=== PATIENT | male | born 1945 | race Caucasian/White ===

== ENCOUNTER 2019-11-13 05:56 | Emergency (ER) | payer OTHER ==
--- NOTE | 2019-11-13 06:12 | EDM.PDOC ---
"<Josette Parmar - Last Filed: 11/13/19 06:53> ED HPI GENERAL MEDICAL PROBLEM - General Chief Complaint: Abdominal Pain Stated Complaint: STOMACH PROBLEMS Time Seen by Provider: 11/13/19 06:11 Source of Information: Reports: Patient, RN History Limitations: Reports: No Limitations - History of Present Illness INITIAL COMMENTS - FREE TEXT/NARRATIVE: ED with c/o severe abdominal pain, radiating to between shoulder blades. started late last night, woke twice took pill helped some, unsure what pill was, stated had been on it 4-5 years ago but pain was different then. Monitor HR in 40's. states usually mid 50's. Rates pain 10/10. Abdomen Pain Score (Numeric/FACES): 10 - Related Data Allergies Allergy/AdvReac Type Severity Reaction Status Date / Time No Known Allergies Allergy Verified 11/13/19 06:29 ED EXAM, GI/ABD - Physical Exam Exam: See Below Exam Limited By: No Limitations General Appearance: Alert, Moderate Distress, Obese Ears: Normal External Exam Nose: Normal Inspection Throat/Mouth: Normal Inspection, Normal Lips, Normal Oropharynx, Normal Voice, No Airway Compromise Head: Atraumatic, Normocephalic Neck: Normal Inspection Respiratory/Chest: No Respiratory Distress, Lungs Clear, Normal Breath Sounds Cardiovascular: Normal Peripheral Pulses, Regular Rate, Rhythm, Bradycardia GI/Abdominal Exam: Abnormal Bowel Sounds (faint) Rectal (Males) Exam: Normal Rectal Tone Back Exam: Full Range of Motion Extremities: Normal Inspection Neurological: Alert, Oriented, Normal Cognition Psychiatric: Normal Affect Skin Exam: Dry, Pallor Departure - Departure Disposition: Home, Self-Care 01 Clinical Impression: Biliary colic Cholelithiasis without obstruction Qualifiers: Cholelithiasis location: gallbladder Cholecystitis presence: without cholecystitis Qualified Code(s): K80.20 - Calculus of gallbladder without cholecystitis without obstruction - Discharge Information Instructions: Biliary Colic, Adult, Cholelithiasis Forms: ED Department Discharge Additional Instructions: Very low fat diet and no alcohol. [facility] this [facility] for [facility]. <Romulo Cartagena - Last Filed: 11/13/19 07:37> ED HPI GENERAL MEDICAL PROBLEM - History of Present Illness INITIAL COMMENTS - FREE TEXT/NARRATIVE: I assumed care of the pt from Josette VOGEL at 0700HR shift change with pt comfortable and symptom free with labs results complete and CT Chest/Abd/Pelvis report pending. ED ROS GENERAL - Review of Systems Review Of Systems: Comprehensive ROS is negative, except as noted in HPI. ED EXAM, GI/ABD - Physical Exam Exam: See Below Exam Limited By: No Limitations General Appearance: Alert, WD/WN, No Apparent Distress, Obese Throat/Mouth: Normal Lips, Normal Voice, No Airway Compromise Head: Atraumatic, Normocephalic Neck: Normal Inspection Respiratory/Chest: No Respiratory Distress, Normal Breath Sounds Cardiovascular: Regular Rate, Rhythm (HR 68 at time of exam.), No Edema GI/Abdominal Exam: Normal Bowel Sounds, Soft, Non-Tender, No Distention. No: Guarding, Rigid, Rebound Neurological: Alert, Oriented, No Motor/Sensory Deficits Psychiatric: Normal Mood Skin Exam: Warm, Dry, Intact, Normal Color Course - Vital Signs Last Recorded V/S: Last Vital Signs Temp 96.6 F L 11/13/19 06:12 Pulse 49 L 11/13/19 06:12 Resp 19 11/13/19 06:12 BP 128/50 L 11/13/19 06:12 Pulse Ox 100 11/13/19 06:12 - Orders/Labs/Meds Orders: Active Orders 24 hr Category Date Time Status EKG Documentation Completion [RC] URGENT Care 11/13/19 06:32 Active CULTURE BLOOD [BC] Stat Lab 11/13/19 06:34 Ordered CULTURE BLOOD [BC] Stat Lab 11/13/19 06:34 Ordered LACTIC ACID [CHEM] Stat Lab 11/13/19 06:32 Ordered TYPE AND SCREEN [BBK] Stat Lab 11/13/19 06:25 Received UA W/MICROSCOPIC [URIN] Stat Lab 11/13/19 06:32 Ordered Sodium Chloride 0.9% [Normal Saline] 1,000 ml Med 11/13/19 06:31 Active IV .BOLUS Blood Culture x2 Reflex Set [OM.PC] Stat Oth 11/13/19 06:33 Ordered Medication Orders Sodium Chloride (Normal Saline) 1,000 mls @ 999 mls/hr IV .BOLUS ONE Stop: 11/13/19 07:31 Last Admin: 11/13/19 06:34 Dose: 999 mls/hr Documented by: DANIELLE Labs: Laboratory Tests 11/13/19 11/13/19 11/13/19 Range/Units 06:25 06:25 06:25 WBC 9.6 (5.0-10.0) 10^3/uL RBC 4.68 (4.6-6.2) 10^6/uL Hgb 14.8 (14.0-18.0) g/dL Hct 42.2 (40.0-54.0) % MCV 90.2 (80-100) fL MCH 31.6 (27.0-34.0) pg MCHC 35.1 H (33.0-35.0) g/dL Plt Count 171 (150-450) 10^3/uL Neut % (Auto) 83.2 H (42.2-75.2) % Lymph % (Auto) 10.0 L (20.5-50.1) % Barry % (Auto) 6.1 (2-8) % Eos % (Auto) 0.5 L (1.0-3.0) % Baso % (Auto) 0.2 (0.0-1.0) % PT 10.2 (9.0-12.0) SEC INR 1.1 (0.9-1.2) D-Dimer, Quantitative 185 (0-400) ng/mL Sodium 142 (136-145) mmol/L Potassium 3.5 (3.5-5.1) mmol/L Chloride 106 (98-107) mmol/L Carbon Dioxide 29 (21-32) mmol/L Anion Gap 10.5 (7-13) mEq/L BUN 17 (7-18) mg/dL Creatinine 1.30 (0.70-1.30) mg/dL Est Cr Clr Drug Dosing 56.34 mL/min Estimated GFR (MDRD) 54 BUN/Creatinine Ratio 13.1 (No establ ref range) Glucose 214 H (74-99) mg/dL Calcium 8.8 (8.5-10.1) mg/dL Magnesium 2.0 (1.8-2.4) mg/dL Total Bilirubin 0.5 (0.2-1.0) mg/dL AST 21 (15-37) U/L ALT 38 (16-63) U/L Alkaline Phosphatase 86 (46-116) U/L Troponin I < 0.017 (0.000-0.056) ng/mL B-Natriuretic Peptide 68 (0-100) pg/ml Total Protein 6.2 L (6.4-8.2) g/dL Albumin 3.4 (3.4-5.0) g/dL Globulin 2.8 Albumin/Globulin Ratio 1.2 Amylase 42 (25-115) U/L Lipase 146 (73-393) U/L Meds: Medications Generic Name Dose Route Start Last Admin Trade Name Freq PRN Reason Stop Dose Admin Sodium Chloride 1,000 mls @ 999 mls/hr 11/13/19 06:31 11/13/19 06:34 Normal Saline IV 11/13/19 07:31 999 mls/hr .BOLUS ONE Administration Discontinued Medications Generic Name Dose Route Start Last Admin Trade Name Freq PRN Reason Stop Dose Admin Atropine Sulfate 0.5 mg 11/13/19 06:36 11/13/19 06:38 Atropine 0.1 Mg/Ml IVPUSH 11/13/19 06:37 0.5 mg ONETIME ONE Administration Atropine Sulfate Confirm 11/13/19 06:37 11/13/19 06:54 Atropine 0.1 Mg/Ml Administered 11/13/19 06:38 Not Given Dose 1 mg .ROUTE .STK-MED ONE Fentanyl 25 mcg 11/13/19 06:31 11/13/19 06:33 Sublimaze IVPUSH 11/13/19 06:32 25 mcg ONETIME ONE Administration Fentanyl Confirm 11/13/19 06:31 11/13/19 06:34 Sublimaze Administered 11/13/19 06:32 Not Given Dose 100 mcg .ROUTE .STK-MED ONE Iopamidol 100 ml 11/13/19 06:35 11/13/19 06:44 Isovue-300 (61%) IVPUSH 11/13/19 06:36 100 ml ONETIME ONE Administration - Radiology Interpretation Free Text/Narrative:: [facility] [place] [facility] Final Radiology Report Call: [phone] assistance Online chat: [email or web address] Name: KIM JOHNSON Age: 74Years M Date: 11/13/2019 SSN: -- : 1945 Study: CR CHEST 1V FRONTAL Requesting Physician: JOSETTE PARMAR Images: 1 Addl Studies: Provided Clinical History: dizzy Contrast: Contrast Medium: Contrast Amount: Contrast Method: CONFIDENTIALITY STATEMENT This report is intended only for use by the referring physician, and only in accordance with law. If you received this in error, call [phone]. Page 1 of 1 PROCEDURE INFORMATION: Exam: XR Chest, 1 View Exam date and time: 11/13/2019 6:38 AM Age: 74 years old Clinical indication: Other: Dizzy TECHNIQUE: Imaging protocol: XR of the chest Views: Frontal portable view of the chest. COMPARISON: No relevant prior studies available. FINDINGS: Tubes, catheters and devices: EKG leads are present overlying the chest. Lungs: The lungs are clear bilaterally. The pulmonary vasculature is normal. Pleural space: No pleural effusion. No pneumothorax. Heart/Mediastinum: The heart is normal in size and contour. Bones/joints: No acute chest wall abnormality identified. IMPRESSION: No acute cardiopulmonary abnormality identified. Thank you for allowing us to participate in the care of your patient. Dictated and Authenticated by: Devin De Leon MD 11/13/2019 7:15 AM Central Time ([place] & [place]) [facility] Final Radiology Report Call: [phone] assistance Online chat: [email or web address] Name: KIM JOHNSON Age: 74Years M Date: 11/13/2019 SSN: -- : 1945 Study: CT CHEST ABDOMEN PELVIS W CONT Requesting Physician: JOSETTE PARMAR Images: [id number] Addl Studies: [id number] - CT CHEST W (1) Provided Clinical History: abdominal pain, hilario, pain to back Contrast: With Contrast Medium: Contrast Amount: 100 mL Contrast Method: Intravenous (IV) Page 1 of 3 PROCEDURE INFORMATION: Exam: CT Chest With Contrast Exam date and time: 11/13/2019 7:00 AM Age: 74 years old Clinical indication: Other: R/O dissection; Additional info: Abdominal pain, hilario, pain to back TECHNIQUE: Imaging protocol: Computed tomography of the chest with intravenous contrast. Radiation optimization: All CT scans at this facility use at least one of these dose optimization techniques: automated exposure control; mA and/or kV adjustment per patient size (includes targeted exams where dose is matched to clinical indication); or iterative reconstruction. Contrast material: [id number]; Contrast volume: 100 ml; Contrast route: INTRAVENOUS (IV); COMPARISON: No relevant prior studies available. FINDINGS: Thyroid: The partially imaged bilateral thyroid lobes are unremarkable. Lungs: A 1.6 mm noncalcified pulmonary nodule is noted in the lateral apical segment of the left upper lobe (LOC -1469.6). Mild inferior lingular subsegmental atelectasis. Pleural space: No pneumothorax. No pleural effusion. Heart: Atherosclerotic coronary calcifications are noted involving the LCx and RCA coronary arteries. Aorta: Unremarkable. No aortic aneurysm. Lymph nodes: Small triangular subpleural lymph node of the left lower lobe at the major fissure. Bones/joints: Thoracic spine vertebral body marginal osteophytes are noted at multiple levels. Thoracic spine vertebral body marginal osteophytes are noted at multiple levels. Mild chronic T3 vertebral body compression deformity. Degenerative disk disease is present at mid-thoracic spine disk levels. Soft tissues: Unremarkable. ELIZABETH KIM | Final Radiology Report Page 2 of 3 Other findings: Vasculature: Azygous arch valvular calcifications, normal va riant. IMPRESSION: 1. No thoracic aortic aneurysm or dissection identified. 2. No pulmonary embolism identified. 3. Noncalcified small right upper lobe pulmonary nodule. For patients at low risk (minimal or absent history of smoking and of other known risk factors), no routine follow-up is indicated. For patients at high risk (history of smoking or of other known risk factors), consider optional CT at 12 months. (eduardo Irizarry al., Fleischner Society, 2017). 4. Coronary atherosclerosis. 5. Please see the abdomen/pelvis CT report of the same date for additional find ings. PROCEDURE INFORMATION: Exam: CT Abdomen And Pelvis With Contrast Exam date and time: 11/13/2019 7:00 AM Age: 74 years old Clinical indication: Other: R/O dissection; Additional info: Abdominal pain, hilario, pain to back TECHNIQUE: Imaging protocol: Computed tomography of the abdomen and pelvis with intravenous contrast. Radiation optimization: All CT scans at this facility use at least one of these dose optimization techniques: automated exposure control; mA and/or kV adjustment per patient size (includes targeted exams where dose is matched to clinical indication); or iterative recon struction. Contrast material: [id number]; Contrast volume: 100 ml; Contrast route: INTRAVENOUS (IV); COMPARISON: No relevant prior studies available. FINDINGS: Liver: Normal. No mass. Gallbladder and bile ducts: A few dependent small gallstones are noted posteriorly in the borderline distended gallbladder. The gallbladder transverse lumen measures 4.3 cm. No gallbladder wall thickening. Possible mild pericholecystic edema. Pancreas: Normal. No ductal dilation. Spleen: Normal. No splenomegaly. Adrenals: Normal. No mass. Kidneys and ureters: Accessory left renal artery, single right renal artery. No significant stenosis. Stomach and bowel: Unremarkable. No obstruction. No mucosal thickening. Appendix: The vermiform appendix is normal. Intraperitoneal space: Unremarkable. No free air. No significant fluid collection. Vasculature: Replaced hepatic artery (SMA origin), a normal variant. Mild aortic atherosclerotic calcification without aneurysm. Lymph nodes: No enlarged lymph nodes. Bladder: Partially obscured by streak artifact. No calculi as visualized. KIM JOHNSON | Final Radiology Report CONFIDENTIALITY STATEMENT This report is intended only for use by the referring physician, and only in accordance with law. If you received this in error, call [phone]. Page 3 of 3 Reproductive: Right pelvic penile prosthesis reservoir. Partially obscured by streak artifact inferiorly, unremarkable as visualized. 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 Severe L4-L5 spinal stenosis. Right L5-S1 lateral recess stenosis. Small left femoral head bone island. Mild-moderate left hip primary osteoarthritis. Soft tissues: Unremarkable. IMPRESSION: 1. No abdominal aortic aneurysm or dissection identified. 2. Cholelithiasis, possible mild pericholecystic edema. Gallbladder sonography recommended. 3. Please see the CT chest report of the same date for additional findings. Thank you for allowing us to participate in the care of your patient. Dictated and Authenticated by: Devin De Leon MD 11/13/2019 7:24 AM Central Time ([place] & [place]) Departure - Departure Time of Disposition: 07:35 Condition: Good - Discharge Information *PRESCRIPTION DRUG MONITORING PROGRAM REVIEWED*: Not Applicable *COPY OF PRESCRIPTION DRUG MONITORING REPORT IN PATIENT GLORIA: Not Applicable Sepsis Event Note (ED) - Focused Exam Vital Signs: Vital Signs Temp Pulse Resp BP Pulse Ox 11/13/19 06:12 96.6 F L 49 L 19 128/50 L 100"
[2019-11-13] MEDS ORDERED: fentaNYL 100 MCG/2 ML SDV ONE (06:31)
[2019-11-13] MEDS ORDERED: fentaNYL 100 MCG/2 ML SDV IVPUSH ONE (06:31)
[2019-11-13] MEDS ORDERED: Sodium Chloride 0.9% 1,000 ML IV ONE (06:31)
[2019-11-13] MEDS ORDERED: Iopamidol 612 MG/ML 100 ML Bottle IVPUSH ONE (06:35)
[2019-11-13] MEDS ORDERED: Atropine 0.1 MG/ML 10 ML Syringe IVPUSH ONE (06:36)
[2019-11-13] MEDS ORDERED: Atropine 0.1 MG/ML 10 ML Syringe ONE (06:37)
[2019-11-13 07:00] LABS: ANION GAP 10.5 mEq/L (7-13); CHLORIDE,CL 106 mmol/L (98-107); SODIUM,NA 142 mmol/L (136-145)
--- NOTE | 2019-11-13 07:15 | CR ---
PROCEDURE INFORMATION: Exam: XR Chest, 1 View Exam date and time: 11/13/2019 6:38 AM Age: 74 years old Clinical indication: Other: Dizzy TECHNIQUE: Imaging protocol: XR of the chest Views: Frontal portable view of the chest. COMPARISON: No relevant prior studies available. FINDINGS: Tubes, catheters and devices: EKG leads are present overlying the chest. Lungs: The lungs are clear bilaterally. The pulmonary vasculature is normal. Pleural space: No pleural effusion. No pneumothorax. Heart/Mediastinum: The heart is normal in size and contour. Bones/joints: No acute chest wall abnormality identified. IMPRESSION: No acute cardiopulmonary abnormality identified.
--- NOTE | 2019-11-13 07:25 | CT ---
PROCEDURE INFORMATION: Exam: CT Chest With Contrast Exam date and time: 11/13/2019 7:00 AM Age: 74 years old Clinical indication: Other: R/O dissection; Additional info: Abdominal pain, hilario, pain to back TECHNIQUE: Imaging protocol: Computed tomography of the chest with intravenous contrast. Radiation optimization: All CT scans at this facility use at least one of these dose optimization techniques: automated exposure control; mA and/or kV adjustment per patient size (includes targeted exams where dose is matched to clinical indication); or iterative reconstruction. Contrast material: [id number]; Contrast volume: 100 ml; Contrast route: INTRAVENOUS (IV); COMPARISON: No relevant prior studies available. FINDINGS: Thyroid: The partially imaged bilateral thyroid lobes are unremarkable. Lungs: A 1.6 mm noncalcified pulmonary nodule is noted in the lateral apical segment of the left upper lobe (LOC -1469.6). Mild inferior lingular subsegmental atelectasis. Pleural space: No pneumothorax. No pleural effusion. Heart: Atherosclerotic coronary calcifications are noted involving the LCx and RCA coronary arteries. Aorta: Unremarkable. No aortic aneurysm. Lymph nodes: Small triangular subpleural lymph node of the left lower lobe at the major fissure. Bones/joints: Thoracic spine vertebral body marginal osteophytes are noted at multiple levels. Thoracic spine vertebral body marginal osteophytes are noted at multiple levels. Mild chronic T3 vertebral body compression deformity. Degenerative disk disease is present at mid-thoracic spine disk levels. Soft tissues: Unremarkable. Other findings: Vasculature: Azygous arch valvular calcifications, normal variant. IMPRESSION: 1. No thoracic aortic aneurysm or dissection identified. 2. No pulmonary embolism identified. 3. Noncalcified small right upper lobe pulmonary nodule. For patients at low risk (minimal or absent history of smoking and of other known risk factors), no routine follow-up is indicated. For patients at high risk (history of smoking or of other known risk factors), consider optional CT at 12 months. (Edie et al., Fleischner Society, 2017). 4. Coronary atherosclerosis. 5. Please see the abdomen/pelvis CT report of the same date for additional findings. PROCEDURE INFORMATION: Exam: CT Abdomen And Pelvis With Contrast Exam date and time: 11/13/2019 7:00 AM Age: 74 years old Clinical indication: Other: R/O dissection; Additional info: Abdominal pain, hilairo, pain to back TECHNIQUE: Imaging protocol: Computed tomography of the abdomen and pelvis with intravenous contrast. Radiation optimization: All CT scans at this facility use at least one of these dose optimization techniques: automated exposure control; mA and/or kV adjustment per patient size (includes targeted exams where dose is matched to clinical indication); or iterative reconstruction. Contrast material: [id number]; Contrast volume: 100 ml; Contrast route: INTRAVENOUS (IV); COMPARISON: No relevant prior studies available. FINDINGS: Liver: Normal. No mass. Gallbladder and bile ducts: A few dependent small gallstones are noted posteriorly in the borderline distended gallbladder. The gallbladder transverse lumen measures 4.3 cm. No gallbladder wall thickening. Possible mild pericholecystic edema. Pancreas: Normal. No ductal dilation. Spleen: Normal. No splenomegaly. Adrenals: Normal. No mass. Kidneys and ureters: Accessory left renal artery, single right renal artery. No significant stenosis. Stomach and bowel: Unremarkable. No obstruction. No mucosal thickening. Appendix: The vermiform appendix is normal. Intraperitoneal space: Unremarkable. No free air. No significant fluid collection. Vasculature: Replaced hepatic artery (SMA origin), a normal variant. Mild aortic atherosclerotic calcification without aneurysm. Lymph nodes: No enlarged lymph nodes. Bladder: Partially obscured by streak artifact. No calculi as visualized. Reproductive: Right pelvic penile prosthesis reservoir. Partially obscured by streak artifact inferiorly, unremarkable as visualized. 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 Severe L4-L5 spinal stenosis. Right L5-S1 lateral recess stenosis. Small left femoral head bone island. Mild-moderate left hip primary osteoarthritis. Soft tissues: Unremarkable. IMPRESSION: 1. No abdominal aortic aneurysm or dissection identified. 2. Cholelithiasis, possible mild pericholecystic edema. Gallbladder sonography recommended. 3. Please see the CT chest report of the same date for additional findings.
== END 2019-11-13 07:57 | disposition home or self-care (01) ==
LOC: DL.ED 05:56
DX: K80.70 Calculus of gallbladder and bile duct without cholecystitis without obstruction (principal)
CPT/HCPCS: 36415; 71045; 71260; 74177; 80053; 82150; 82272; 83605; 83690; 83735; 83880; 84484; 85025; 85379; 85610; 86850; 86900; 86901; 87040; 93005; 96361; 96374; 96375; 99284; J0461; J3010; J7030; Q9967

== ENCOUNTER 2020-02-08 09:28 | Emergency (ER) | payer OTHER ==
[2020-02-08] MEDS ORDERED: Sodium Chloride 0.9% 10 ML Syringe FLUSH PRN (09:54)
[2020-02-08] MEDS ORDERED: Ondansetron 4 MG/2 ML SDV IV ONE (09:54)
[2020-02-08] MEDS ORDERED: HYDROmorphone 0.5 MG/0.5 ML Syringe IVPUSH ONE (09:55)
--- NOTE | 2020-02-08 09:58 | EDM.PDOC ---
ED HPI GENERAL MEDICAL PROBLEM - General Chief Complaint: Abdominal Pain Stated Complaint: MAYBE GALLBLADDER ATTACK Time Seen by Provider: 02/08/20 09:40 Source of Information: Reports: [facility] Records History Limitations: Reports: No Limitations - History of Present Illness INITIAL COMMENTS - FREE TEXT/NARRATIVE: Patient comes emergency department today with complaints of abdominal pain. This patient since early this morning has had cramping abdominal pain pretty much throughout his abdomen. He has pain around the abdomen that is cramping in nature and radiates around to his back. He had a very similar symptomology of this in November. He was supposed to have his gallbladder out although he chose to have back surgery instead. He has had some nausea without vomiting. No fever no chills. No diarrhea. No constipation. No bloating distention. No heartburn type symptoms. No chest pain or shortness of breath or difficulty breathing. No cough or congestion. No fever no chills. abdomen Pain Score (Numeric/FACES): 10 - Related Data Allergies Allergy/AdvReac Type Severity Reaction Status Date / Time No Known Allergies Allergy Verified 02/08/20 09:46 Home Meds: Home Meds . [Unable to Verify Home Med List] 02/08/20 [History] Past Medical History Cardiovascular History: Reports: High Cholesterol, Hypertension Respiratory History: Reports: None Gastrointestinal History: Reports: None Genitourinary History: Reports: None Neurological History: Reports: None Psychiatric History: Reports: None Endocrine/Metabolic History: Reports: Diabetes, Type II Hematologic History: Reports: None Immunologic History: Reports: None Oncologic (Cancer) History: Reports: None Dermatologic History: Reports: None - Infectious Disease History Infectious Disease History: Reports: None - Past Surgical History Cardiovascular Surgical History: Reports: None Respiratory Surgical History: Reports: None GI Surgical History: Reports: None Neurological Surgical History: Reports: Other (See Below) Other Neurological Surgeries/Procedures: back surgery - ? laminectomy Musculoskeletal Surgical History: Reports: Other (See Below) Other Musculoskeletal Surgeries/Procedures:: back surgery December 2019 Social & Family History - Family History Family Medical History: Noncontributory - Tobacco Use Smoking Status *Q: Never Smoker Second Hand Smoke Exposure: No - Caffeine Use Caffeine Use: Reports: Coffee - Recreational Drug Use Recreational Drug Use: No ED ROS GENERAL - Review of Systems Review Of Systems: Comprehensive ROS is negative, except as noted in HPI. ED EXAM, GI/ABD - Physical Exam Exam: See Below Exam Limited By: No Limitations General Appearance: Alert, WD/WN, No Apparent Distress Ears: Normal External Exam Nose: Normal Inspection Throat/Mouth: Normal Inspection Head: Atraumatic Neck: Normal Inspection Respiratory/Chest: No Respiratory Distress, Lungs Clear, Normal Breath Sounds, Chest Non-Tender Cardiovascular: Normal Peripheral Pulses, Regular Rate, Rhythm GI/Abdominal Exam: Normal Bowel Sounds, Soft, Non-Tender, No Organomegaly, No Distention, No Abnormal Bruit, No Mass, Pelvis Stable. No: Distended, Guarding, Rigid, Rebound, Tender, Abnormal Bowel Sounds (Male) Exam: Deferred Rectal (Males) Exam: Deferred Back Exam: Normal Inspection, Full Range of Motion Extremities: Normal Inspection, Normal Range of Motion, Non-Tender, Normal Capillary Refill Neurological: Alert, Oriented, Normal Cognition, No Motor/Sensory Deficits Psychiatric: Normal Affect, Normal Mood Skin Exam: Warm, Dry, Intact, Normal Color, No Rash Course - Vital Signs Last Recorded V/S: Last Vital Signs Temp 96.4 F L 02/08/20 09:38 Pulse 50 L 02/08/20 09:38 Resp 20 02/08/20 09:38 BP 143/62 H 02/08/20 09:38 Pulse Ox 98 02/08/20 09:38 - Orders/Labs/Meds Orders: Active Orders 24 hr Category Date Time Status Peripheral IV Care [RC] . DIRECTED Care 02/08/20 09:54 Active Sodium Chloride 0.9% [Saline Flush] Med 02/08/20 09:54 Active 10 ml FLUSH ASDIRECTED PRN Peripheral IV Insertion Adult [OM.PC] Stat Oth 02/08/20 09:54 Ordered Medication Orders Sodium Chloride (Saline Flush) 10 ml FLUSH ASDIRECTED PRN PRN Reason: Keep Vein Open Last Admin: 02/08/20 10:08 Dose: 10 ml Documented by: SHELIA Labs: Laboratory Tests 02/08/20 02/08/20 02/08/20 Range/Units 10:02 10:02 10:15 WBC 7.8 (5.0-10.0) 10^3/uL RBC 5.01 (4.6-6.2) 10^6/uL Hgb 15.1 (14.0-18.0) g/dL Hct 43.3 (40.0-54.0) % MCV 86.4 D (80-100) fL MCH 30.1 (27.0-34.0) pg MCHC 34.9 (33.0-35.0) g/dL Plt Count 175 (150-450) 10^3/uL Neut % (Auto) 78.1 H (42.2-75.2) % Lymph % (Auto) 13.7 L (20.5-50.1) % Morrison % (Auto) 7.0 (2-8) % Eos % (Auto) 0.9 L (1.0-3.0) % Baso % (Auto) 0.3 (0.0-1.0) % Sodium 139 (136-145) mmol/L Potassium 3.7 (3.5-5.1) mmol/L Chloride 103 (98-107) mmol/L Carbon Dioxide 28 (21-32) mmol/L Anion Gap 11.7 (7-13) mEq/L BUN 20 H (7-18) mg/dL Creatinine 1.22 (0.70-1.30) mg/dL Est Cr Clr Drug Dosing 60.03 mL/min Estimated GFR (MDRD) 58 BUN/Creatinine Ratio 16.4 (No establ ref range) Glucose 266 H (74-99) mg/dL Lactic Acid 1.3 (0.4-2.0) mmol/L Calcium 8.7 (8.5-10.1) mg/dL Total Bilirubin 0.5 (0.2-1.0) mg/dL AST 18 (15-37) U/L ALT 30 (16-63) U/L Alkaline Phosphatase 119 H (46-116) U/L C-Reactive Protein 0.8 (0.0-0.9) mg/dL Total Protein 6.8 (6.4-8.2) g/dL Albumin 3.6 (3.4-5.0) g/dL Globulin 3.2 Albumin/Globulin Ratio 1.1 Lipase 188 (73-393) U/L Urine Color (YELLOW) Urine Appearance (CLEAR) Urine pH (5.0-9.0) Ur Specific [place] (1.005-1.030) Urine Protein (NEGATIVE) Urine Glucose (UA) (NEGATIVE) Urine Ketones (NEGATIVE) Urine Occult Blood (NEGATIVE) Urine Nitrite (NEGATIVE) Urine Bilirubin (NEGATIVE) Urine Urobilinogen (0.2-1.0) mg/dL Ur Leukocyte Esterase (NEGATIVE) 02/07/ Range/Units 10:30 WBC (5.0-10.0) 10^3/uL RBC (4.6-6.2) 10^6/uL Hgb (14.0-18.0) g/dL Hct (40.0-54.0) % MCV (80-100) fL MCH (27.0-34.0) pg MCHC (33.0-35.0) g/dL Plt Count (150-450) 10^3/uL Neut % (Auto) (42.2-75.2) % Lymph % (Auto) (20.5-50.1) % [place] % (Auto) (2-8) % Eos % (Auto) (1.0-3.0) % Baso % (Auto) (0.0-1.0) % Sodium (136-145) mmol/L Potassium (3.5-5.1) mmol/L Chloride (98-107) mmol/L Carbon Dioxide (21-32) mmol/L Anion Gap (7-13) mEq/L BUN (7-18) mg/dL Creatinine (0.70-1.30) mg/dL Est Cr Clr Drug Dosing mL/min Estimated GFR (MDRD) BUN/Creatinine Ratio (No establ ref range) Glucose (74-99) mg/dL Lactic Acid (0.4-2.0) mmol/L Calcium (8.5-10.1) mg/dL Total Bilirubin (0.2-1.0) mg/dL AST (15-37) U/L ALT (16-63) U/L Alkaline Phosphatase (46-116) U/L C-Reactive Protein (0.0-0.9) mg/dL Total Protein (6.4-8.2) g/dL Albumin (3.4-5.0) g/dL Globulin Albumin/Globulin Ratio Lipase (73-393) U/L Urine Color Yellow (YELLOW) Urine Appearance Clear (CLEAR) Urine pH 7.0 (5.0-9.0) Ur Specific [place] 1.025 (1.005-1.030) Urine Protein Negative (NEGATIVE) Urine Glucose (UA) 500 H (NEGATIVE) Urine Ketones Negative (NEGATIVE) Urine Occult Blood Negative (NEGATIVE) Urine Nitrite Negative (NEGATIVE) Urine Bilirubin Negative (NEGATIVE) Urine Urobilinogen 0.2 (0.2-1.0) mg/dL Ur Leukocyte Esterase Negative (NEGATIVE) Meds: Medications Generic Name Dose Route Start Last Admin Trade Name Sherman PRN Reason Stop Dose Admin Sodium Chloride 10 ml 02/08/20 09:54 02/08/20 10:08 Saline Flush FLUSH 10 ml ASDIRECTED PRN Administration Keep Vein Open Discontinued Medications Generic Name Dose Route Start Last Admin Trade Name Sherman PRN Reason Stop Dose Admin Hydromorphone HCl 0.5 mg 02/08/20 09:55 02/08/20 10:08 Dilaudid IVPUSH 02/08/20 09:56 0.5 mg ONETIME ONE Administration Ondansetron HCl 4 mg 02/08/20 09:54 02/08/20 10:08 Zofran IV 02/08/20 09:55 4 mg ONETIME ONE Administration - Re-Assessments/Exams Free Text/Narrative Re-Assessment/Exam: 02/08/20 11:14 Patient initially had his labs drawn. UA obtained. Dilaudid 0.5 mg IV push and Zofran 4 mg IV push. Reveals laboratory evaluation is rather unremarkable. Normal enzymes of his liver. His pain is completely resolved after the above therapy. He feels much better. We will discharge him home at this time for the guidance of biliary colic and a gallbladder diet. He is [facility] a [facility]. He is comfortable with this plan and his questions are answered. Departure - Departure Time of Disposition: 10:51 Disposition: Home, Self-Care 01 Clinical Impression: Biliary colic - Discharge Information Instructions: Biliary Colic, Adult, Gallbladder Eating Plan, Pain Medicine Instructions, [id number] Forms: ED Department Discharge Additional Instructions: Stay away from fatty foods. See discharge instructions for guidance. Contact your PCP about getting a follow up with your surgeon for possible gallbladder removal. Tylenol as needed for pain. Lots of fluids over the next few days. If pain not controlled with above [place] 1 tablet every 6hrs with food as needed for pain. Caution sedation. RX given to the patient. Sepsis Event Note (ED) - Evaluation Sepsis Screening Result: No Definite Risk - Focused Exam Vital Signs: Vital Signs Temp Pulse Resp BP Pulse Ox 02/08/20 09:38 96.4 F L 50 L 20 143/62 H 98 - My Orders Last 24 Hours: My Active Orders 02/08/20 09:54 Peripheral IV Care [RC] . DIRECTED Sodium Chloride 0.9% [Saline Flush] 10 ml FLUSH ASDIRECTED PRN Peripheral IV Insertion Adult [OM.PC] Stat - Assessment/Plan Last 24 Hours: My Active Orders 02/08/20 09:54 Peripheral IV Care [RC] . DIRECTED Sodium Chloride 0.9% [Saline Flush] 10 ml FLUSH ASDIRECTED PRN Peripheral IV Insertion Adult [OM.PC] Stat
[2020-02-08 10:29] LABS: ANION GAP 11.7 mEq/L (7-13)
== END 2020-02-08 11:11 | disposition home or self-care (01) ==
LOC: DL.ED 09:28
DX: K80.50 Calculus of bile duct without cholangitis or cholecystitis without obstruction (principal); I10 Essential (primary) hypertension; E11.9 Type 2 diabetes mellitus without complications
CPT/HCPCS: 36415; 80053; 81003; 83605; 83690; 85025; 86140; 96374; 96375; 99284; J1170; J2405

== ENCOUNTER 2021-09-27 14:03 | Emergency (ER) | payer OTHER | END 2021-09-27 15:00 | disposition home or self-care (01) | LOC: DL.ED 14:03 | DX: S70.361A Insect bite (nonvenomous), right thigh, initial encounter (principal); I10 Essential (primary) hypertension; E11.40 Type 2 diabetes mellitus with diabetic neuropathy, unspecified; W57.XXXA Bitten or stung by nonvenomous insect and other nonvenomous arthropods, initial encounter | CPT/HCPCS: 99282 ==

== ENCOUNTER 2022-11-12 08:34 | Emergency (ER) | payer OTHER | END 2022-11-12 10:43 | disposition home or self-care (01) | LOC: DL.ED 08:34 | DX: S52.325A Nondisplaced transverse fracture of shaft of left radius, initial encounter for closed fracture (principal); I10 Essential (primary) hypertension; E11.40 Type 2 diabetes mellitus with diabetic neuropathy, unspecified; W23.1XXA Caught, crushed, jammed, or pinched between stationary objects, initial encounter | CPT/HCPCS: 29105; 73090-LT; 99283 ==

== ENCOUNTER 2023-09-28 09:54 | Emergency (ER) | payer OTHER | END 2023-09-28 10:48 | disposition home or self-care (01) | LOC: DL.ED 09:54 | DX: S51.811A Laceration without foreign body of right forearm, initial encounter (principal); I10 Essential (primary) hypertension; E11.9 Type 2 diabetes mellitus without complications; X58.XXXA Exposure to other specified factors, initial encounter | CPT/HCPCS: 99282 ==

== ENCOUNTER 2023-11-09 10:04 | Emergency (ER) | payer OTHER | END 2023-11-09 11:20 | disposition home or self-care (01) | LOC: DL.ED 10:04 | DX: E11.621 Type 2 diabetes mellitus with foot ulcer (principal); L97.529 Non-pressure chronic ulcer of other part of left foot with unspecified severity; I10 Essential (primary) hypertension | CPT/HCPCS: 87070; 99284 ==